=== PATIENT | male | born 1975 | race Caucasian/White ===

== ENCOUNTER 2022-07-26 10:34 | Emergency (ER) | payer BC, SELFPAY ==
[2022-07-26 10:50] VITALS: BP 115/78; PULSE 80; RESP 20; TEMP 36.9; O2SAT 97; BMI 22.6
[2022-07-26 11:00] VITALS: BP 121/76; PULSE 78; RESP 18; O2SAT 98
--- NOTE | 2022-07-26 11:25 | ED.CHESTPAIN ---
HPI - Chest Pain General Chief Complaint: Chest Pain Stated Complaint: Chest pain Time Seen by Provider: 07/26/22 11:01 History of Present Illness HPI narrative: This 46-year-old male comes in reporting chest pressure and heaviness over the past couple days. He states that it is constant and seems to be getting worse. He does not report any increase of symptoms with taking a deep breath or with certain movements or activities. He does report some nausea but denies having any vomiting, lightheadedness, shortness of breath, or diaphoresis. 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 He does also have a bicuspid valve and aortic stenosis. He is in touch with a television camera operator. He denies having any fevers or shortness of breath or upper respiratory symptoms. He is taking a baby aspirin and is on Plavix. Related Data Home Medications Medication Instructions Recorded Confirmed allopurinol 100 mg tablet 100 mg PO DAILY 07/26/22 07/26/22 clopidogrel 75 mg tablet 75 mg PO DAILY 07/26/22 07/26/22 escitalopram oxalate 10 mg tablet 10 mg PO DAILY 07/26/22 07/26/22 nicotine (polacrilex) 2 mg buccal 2 mg PO DAILY PRN 07/26/22 07/26/22 lozenge nitroglycerin 0.4 mg sublingual 0.4 mg buccal Q5M PRN 07/26/22 07/26/22 tablet Previous Rx's Medication Instructions Recorded ketorolac 10 mg tablet 10 mg PO Q8H 5 days #15 tabs 07/26/22 Allergies Allergy/AdvReac Type Severity Reaction Status Date / Time Unable to Assess Allergy Verified 07/26/22 11:18 Review of Systems Status of ROS Reports: 10 or more systems reviewed and unremarkable except as noted in History and below Narrative Constitutional: No fevers, no weight gain or loss. Eyes: No discharge. No vision changes. HENT: No congestion, no sore throat, no ear pain. Cardiovascular: No palpitations. Chest discomfort as described above. Respiratory: No shortness of breath, no wheezes, no cough. Gastrointestinal: No abdominal pain, no vomiting, no diarrhea. He reports some nausea. Genitourinary: No dysuria, no hematuria. Musculoskeletal: Normal range of motion. Skin: No rashes, no pruritis. Neurological: No dizziness, weakness, sensory change, speech change. Endo/Heme/Allergies: No bruising or bleeding. No polydipsia. Pysch: no suicidality, no anxiety, no insomnia. All other systems reviewed and are negative. Exam Narrative Exam Narrative: Constitutional: Well-developed, well-nourished, no acute distress. HEENT: Normocephalic, atraumatic. Neck: Normal range of motion. Nontender. Supple. Heart: Regular. No murmurs. Normal rate. Intact distal pulses. Lungs: Clear to auscultation. No chest discomfort. No wheezes, rhonchi, or rales. Abdomen: Normal bowel sounds. Nontender. No rebound tenderness. Genitalia: Deferred. Back: No midline tenderness. Normal range of motion. Extremities: Normal range of motion. No injury. Skin: Intact. No rash. Warm. No erythema or pallor. Neurologic: No altered sensation. No weakness. Alert and oriented. Psychiatric: No suicidality. No anxiety or depression. No insomnia. Nursing notes and vitals signs are reviewed. Const Vital Signs, click to edit/add: Vital Signs - 24 hr 07/26/22 10:50 Temperature 98.4 F Pulse Rate [Right Pulse Oximeter] 80 Respiratory Rate 20 Blood Pressure [Left Upper Arm] 115/78 Pulse Oximetry 97 Oxygen Delivery Method Room Air Course Vital Signs Vital signs: Initial Vital Signs Temperature 98.4 F 07/26/22 10:50 Temperature Source Temporal Artery Scan 07/26/22 10:50 Pulse Rate 80 07/26/22 10:50 Respiratory Rate 20 07/26/22 10:50 Blood Pressure 115/78 07/26/22 10:50 Blood Pressure Mean 90 07/26/22 10:50 Blood Pressure Position Semi-Fowlers 07/26/22 10:50 Pulse Oximetry 97 07/26/22 10:50 Oxygen Delivery Method 07/26/22 10:50 Vital Signs Temperature 98.4 F 07/26/22 10:50 Pulse Rate 80 07/26/22 10:50 Respiratory Rate 20 07/26/22 10:50 Blood Pressure 115/78 07/26/22 10:50 Pulse Oximetry 97 07/26/22 10:50 Oxygen Delivery Method 07/26/22 10:50 Temperature 98.4 F 07/26/22 10:50 Pulse Rate 80 07/26/22 10:50 Respiratory Rate 20 07/26/22 10:50 Blood Pressure 115/78 07/26/22 10:50 Pulse Oximetry 97 07/26/22 10:50 Oxygen Delivery Method 07/26/22 10:50 MDM - Chest Pain MDM Narrative Medical decision making narrative: This patient comes in reporting chest discomfort that is been constant and slowly worsening according to him over the past couple days. He has a history of chronic chest discomfort. He does not report any particular injury event and states that this pain does not seem to be reproducible with activity or deep breathing. His EKG today shows normal sinus rhythm without any sign of strain or cardiac findings that are abnormal. Additionally his labs also returned with normal results. His troponin is 0. This patient's symptoms are not new for him. He may be having some chest wall pain or atypical chest pain. There are no findings here that point to a cardiac or pulmonary etiology. This was reassuring to the patient. He did receive a prescription for Toradol. I advised him to follow-up with his television camera operator or return if worsening symptoms happen. Lab Data Labs: Lab Results 07/26/22 07/26/22 07/26/22 Range/Units 11:00 11:00 11:28 WBC 5.56 (4.50-11.00) K/uL RBC 4.86 (4.30-5.90) m/uL Hgb 14.4 (13.5-17.5) gm/dL Hct 43.4 (37.0-53.0) % MCV 89 (80-100) fL MCH 30 (26-34) pg MCHC 33 (32-36) gm/dL RDW Coeff of Garcia 12.6 (11.5-15.5) % Plt Count 340 (140-440) K/uL Neut % (Auto) 66.8 (42.0-72.0) % Lymph % (Auto) 24.5 (20-44) % [place] % (Auto) 8.1 (0.0-11.0) % Eos % (Auto) 0.0 (0.0-7.0) % Baso % (Auto) 0.4 (0.0-3.0) % Neut # (Auto) 3.72 (1.7-7.0) K/uL Lymph # (Auto) 1.36 (0.90-2.90) K/uL [place] # (Auto) 0.50 (0.00-0.90) K/UL Eos # (Auto) 0.00 (0.00-0.50) K/uL Baso # (Auto) 0.02 (0.00-0.30) K/uL Abs Immat Gran (auto) 0.01 (0.00-0.30) K/uL Sodium 138 (135-149) mmol/L Potassium 3.9 (3.6-5.1) mmol/L Chloride 105 (96-114) mmol/L Carbon Dioxide 22 (20-32) mmol/L BUN 13 (5-24) mg/dL Creatinine 1.0 (0.5-1.5) mg/dL Estimated Creat Clear 83.79 Estimated GFR 95 ml/min Glucose 143 H (60-115) mg/dL Calcium 9.4 (8.4-10.6) mg/dL POC Troponin I 0.00 L (0.01-0.04) ng/ml ECG Data Attestation: I personally reviewed and interpreted this ECG as follows: Interpretation: Normal sinus rhythm. Rate is 80 beats per minute. There are no ST or T-wave abnormalities. Discharge Plan Discharge Clinical Impression: Atypical chest pain Patient Disposition: Home, Self-Care Condition: Unchanged Additional Instructions: Continue current plans. Take medication as needed and indicated. Follow up with MD or cardiology clinic. Return if worsening. Prescriptions: New ketorolac 10 mg tablet 10 mg PO Q8H 5 Days Qty: 15 0RF No Action allopurinol 100 mg tablet 100 mg PO DAILY clopidogrel 75 mg tablet 75 mg PO DAILY escitalopram oxalate 10 mg tablet 10 mg PO DAILY nicotine (polacrilex) 2 mg lozenge 2 mg PO DAILY PRN nitroglycerin 0.4 mg tablet, sublingual 0.4 mg buccal Q5M PRN Follow Up/Referrals: Provider,Not a Local [Primary Care Provider] - Stand Alone Forms: [employer] Info Instructions
[2022-07-26 11:30] VITALS: BP 103/67; PULSE 77; RESP 20; O2SAT 97
[2022-07-26 11:32] LABS: Basophils Absolute Auto 0.02 K/uL (0.00-0.30); Basophils Percent Auto 0.4 % (0.0-3.0); Hematocrit 43.4 % (37.0-53.0); Hemoglobin* 14.4 gm/dL (13.5-17.5); Immature Granulocytes Abs Auto 0.01 K/uL (0.00-0.30); Lymphocytes Absolute Auto 1.36 K/uL (0.90-2.90); Lymphocytes Percent Auto 24.5 % (20-44); Mean Corpuscular HGB Conc 33 gm/dL (32-36); Mean Corpuscular Hemoglobin 30 pg (26-34); Mean Corpuscular Volume 89 fL (80-100); Monocytes Percent Auto 8.1 % (0.0-11.0); Neutrophils Absolute Auto 3.72 K/uL (1.7-7.0); Neutrophils Percent Auto 66.8 % (42.0-72.0); Platelet Count* 340 K/uL (140-440); RDW Coefficient of Variation % 12.6 % (11.5-15.5); Red Blood Count 4.86 m/uL (4.30-5.90); White Blood Count* 5.56 K/uL (4.50-11.00)
[2022-07-26 11:36] LABS: Slide Review Reflex No
[2022-07-26 11:48] LABS: Chloride* 105 mmol/L (96-114); Potassium* 3.9 mmol/L (3.6-5.1); Sodium* 138 mmol/L (135-149)
[2022-07-26 11:50] LABS: Est. Creatinine Clearance* 83.79; Estimated Glomerular Filt Rate 95 ml/min
[2022-07-26 11:51] LABS: Blood Urea Nitrogen* 13 mg/dL (5-24); Calcium* 9.4 mg/dL (8.4-10.6); Carbon Dioxide* 22 mmol/L (20-32); Glucose* 143 mg/dL (60-115)
[2022-07-26 12:00] VITALS: BP 107/69; PULSE 77; RESP 14; O2SAT 97
== END 2022-07-26 12:14 | disposition home or self-care (01) ==
PROVIDERS: Emergency Provider Emergency Medicine Emergency Medical Services
DX: R07.9 Chest pain, unspecified (principal)
CPT/HCPCS: 36415; 80048; 84484; 85025; 93005; 99284; 99285